=== PATIENT | male | born 1975 | race Caucasian/White ===

== ENCOUNTER 2017-03-17 09:27 | Emergency (ER) | payer SELFPAY ==
[2017-03-17 09:40] VITALS: BP 141/88
--- NOTE | 2017-03-17 11:36 | Emergency Department Report ---
ED Laceration HPI - HPI Chief Complaint: Wound/Laceration Stated Complaint: LAC/ABD AREA Time Seen by Provider: 03/17/17 11:18 Location: Abdomen Severity: mild Tetanus Status: Up to Date Laceration Symptoms: Yes Pain, No Foreign Body Sensation, No Numbness, No Weakness Other History: Patient is a 41-year-old male presents to ED stating he was working on a piece of Wood with a knife when he accidentally cut himself on the abdomen. Patient states he had a nice turn towards hand while he was trying to cut a piece of wood accidentally lost control and had a laceration to the stomach. Patient states this happened around 9:30 this morning. Patient states he had his last tetanus booster last year and is up to date. ED Review of Systems ROS: Stated complaint: LAC/ABD AREA Other details as noted in HPI Constitutional: denies: chills, fever Eyes: denies: eye pain, eye discharge, vision change ENT: denies: ear pain, throat pain Respiratory: denies: cough, shortness of breath, wheezing Cardiovascular: denies: chest pain, palpitations Endocrine: no symptoms reported Gastrointestinal: denies: abdominal pain, nausea, diarrhea Genitourinary: denies: urgency, dysuria Musculoskeletal: denies: back pain, joint swelling, arthralgia Skin: denies: rash, lesions Neurological: denies: headache, weakness, paresthesias Psychiatric: denies: anxiety, depression Hematological/Lymphatic: denies: easy bleeding, easy bruising ED Past Medical Hx - Past Medical History Previous Medical History?: No - Surgical History Past Surgical History?: No - Social History Smoking Status: Never Smoker Substance Use Type: Alcohol - Medications Home Medications: Home Medications Medication Instructions Recorded Confirmed Last Taken Type Cephalexin [Keflex] 500 mg PO BID #10 capsule 03/17/17 Unknown Rx Ibuprofen [Motrin] 800 mg PO Q8HR PRN #30 tablet 03/17/17 Unknown Rx Laceration Physical Exam - Exam General: Vital signs noted. No distress. Alert and acting appropriately. Wound Length (cm): 3 Laceration Location: Abdomen Laceration Exam: No Foreign Body, No Exposed Tendon, Vessel, or Nerve, No Tendon Injury, No Normal Distal CMS ED Course Vital Signs 03/17/17 09:36 Temperature 98.9 F Pulse Rate 95 H Respiratory 16 Rate Blood Pressure 141/88 O2 Sat by Pulse 96 Oximetry - Laceration /Wound Repair Right Anterior Abdomen Wound Location: abdomen Wound Length (cm): 4 Wound's Depth, Shape: superficial, linear Wound Explored: no foreign body removed Irrigated w/ Saline (ccs): 200 Betadine Prep?: Yes Anesthesia: 1% Lidocaine Volume Anesthetic (ccs): 4 Wound Repaired With: sutures Suture Size/Type: 4:0, proline Number of Sutures: 5 Layer Closure?: No Number Deep Layer Sutures: 0 Sterile Dressing Applied?: Yes ED Medical Decision Making - Medical Decision Making 1-year-old male presents with laceration to the abdomen ED course: The 3cm laceration wound was prepped and draped in sterile fashion. Anesthesia was achieved with 4mL of 1% lidocaine. The wound was irrigated with 200cc NS and explored. There were no foreign bodies The wound was reapproximated in 1 layer with 5 sutures suing with 4-0 monofilament sutures in the dermis with interrupted sutures percutaneously. There was excellent reapproximation of the wound edges. The patient tolerated the procedure without complication. Vital signs are stable patient is in no acute distress Discussed with patient to return to ED in 10-14 days for suture removal. Critical care attestation.: If time is entered above; I have spent that time in minutes in the direct care of this critically ill patient, excluding procedure time. ED Disposition Clinical Impression: Laceration of abdomen Qualifiers: Encounter type: initial encounter Qualified Code(s): S31.119A - Laceration without foreign body of abdominal wall, unspecified quadrant without penetration into peritoneal cavity, initial encounter Disposition: DC TO HOME OR SELFCARE Is pt being admited?: No Does the pt Need Aspirin: No Condition: Stable Instructions: Suture Care (ED), Laceration (ED), Suture Removal (ED) Prescriptions: Cephalexin [Keflex] 500 mg PO BID #10 capsule Ibuprofen [Motrin] 800 mg PO Q8HR PRN #30 tablet PRN Reason: Pain Referrals: PRIMARY CARE,MD [Primary Care Provider] - 3-5 Days [facility] [Outside] - 3-5 Days [facility] [Outside] - 3-5 Days Forms: Accompanied Note, Work/School Release Form(ED) Time of Disposition: 11:43
[2017-03-17] MEDS ORDERED: XYLOCAINE 1% MPF 5 mL ONE (11:40)
[2017-03-17] MEDS ORDERED: XYLOCAINE 1% MPF 5 mL INFILTRATI ONE (11:59)
[2017-03-17] MEDS ORDERED: TRIPLE ANTIBIOTIC TP ONE ×2 (12:00)
== END 2017-03-17 12:22 | disposition home or self-care (01) ==
LOC: ED 09:27
DX: S31.119A Laceration without foreign body of abdominal wall, unspecified quadrant without penetration into peritoneal cavity, initial encounter (principal); W26.0XXA Contact with knife, initial encounter; Y93.9 Activity, unspecified; Y92.9 Unspecified place or not applicable; Y99.9 Unspecified external cause status
CPT/HCPCS: 99282; A6250

== ENCOUNTER 2017-03-31 13:26 | Emergency (ER) | payer SELFPAY ==
--- NOTE | 2017-03-31 15:33 | Emergency Department Report ---
Suture/Staple Removal - HPI Chief Complaint: Laceration/Recheck/Suture Stated Complaint: REMOVAL OF STITCHES Time Seen by Provider: 03/31/17 15:20 When Sutures or Zoila Placed: 11-14 Days Ago Wound Location: RLQ abd ED Review of Systems ROS: Stated complaint: REMOVAL OF STITCHES Other details as noted in HPI Comment: All other systems reviewed and negative Constitutional: denies: chills, fever Gastrointestinal: denies: abdominal pain Skin: as per HPI, other (pt states one suture came out. ). denies: change in color ED Past Medical Hx - Social History Smoking Status: Never Smoker Substance Use Type: Alcohol - Medications Home Medications: Home Medications Medication Instructions Recorded Confirmed Last Taken Type Cephalexin [Keflex] 500 mg PO BID #10 capsule 03/17/17 Unknown Rx Ibuprofen [Motrin] 800 mg PO Q8HR PRN #30 tablet 03/17/17 Unknown Rx Suture Removal Exam - Exam General: Vital signs noted. No distress. Alert and acting appropriately. Wound: No Pathologic Erythema, No Tenderness, No Drainage, No Pus, No Wound Dehiscence Other Systems: All other systems reviewed and are unremarkable. ED Course - Reevaluation(s) Reevaluation #1: 03/31/17 15:34 4 sutures removed. no wound dehiscence - Procedure Description Procedures done: suture removal. 4 sutures removed. no complications ED Recheck MDM - Differential Diagnosis Wound Recheck Critical Care Time: No Critical care attestation.: If time is entered above; I have spent that time in minutes in the direct care of this critically ill patient, excluding procedure time. ED Disposition Clinical Impression: Visit for suture removal Disposition: TO HOME OR SELFCARE Is pt being admited?: No Does the pt Need Aspirin: No Condition: Stable Instructions: Suture Removal (ED) Referrals: HOSSEIN CIFUENTES MD [Staff Physician] - 3-5 Days [facility] [Outside] - 3-5 Days Forms: Work/School Release Form(ED) Time of Disposition: 15:37
[2017-03-31 15:38] VITALS: BP 128/88
== END 2017-03-31 15:47 | disposition home or self-care (01) ==
LOC: ED 13:26
DX: Z48.02 Encounter for removal of sutures (principal)